=== PATIENT | male | born 1990 | race Caucasian/White ===

== ENCOUNTER 2025-03-27 23:41 | Emergency (ER) | payer SELFPAY ==
[~2025-03-27] VITALS: Ht 182.9 cm; Wt 111.1 kg
== END 2025-03-28 01:32 ==
LOC: ER 23:41
DX: Z02.89 Encounter for other administrative examinations (principal); S80.812A Abrasion, left lower leg, initial encounter; S80.811A Abrasion, right lower leg, initial encounter; M25.561 Pain in right knee; M25.551 Pain in right hip; W19.XXXA Unspecified fall, initial encounter; J45.909 Unspecified asthma, uncomplicated
CPT/HCPCS: 73502; 73562-RT; 99283-25; A9270